=== PATIENT | female | born 1970 | race Hispanic/Latino ===

== ENCOUNTER 2019-05-18 | Emergency (ER) | payer SELFPAY ==
[2019-05-18 22:23] LABS: HEMATOCRIT 35.4 % (37.0-47.0); HEMOGLOBIN 11.4 g/dl (12.0-16.0); IMMATURE GRANULOCYTES 0.1 % (0.0-5.0); MEAN CELL VOLUME 83.9 fL CALC (80.0-100.0); MEAN CORPUSCULAR HGB CONC 32.2 g/L CALC (32.0-36.0); NEUT# 4.09 thou/uL (2.00-7.15); RED BLOOD COUNT 4.22 mill/uL (4.20-5.60)
[2019-05-18 22:51] LABS: ALBUMIN 4.4 g/dL (3.2-5.0); ALKALINE PHOSPHATASE 92 u/l (38-126); ANION GAP 14 (6-22 (CALC)); BILIRUBIN, TOTAL 0.3 mg/dL (0.0-1.4); BUN 16 mg/dL (7-17); BUN/CREATININE RATIO 16 (12-20 (CALC)); CARBON DIOXIDE 23 mmol/l (22-30); CHLORIDE 105 mmol/l (95-108); GFR 59 ML/MIN (>=60 (CALC)); GFR FOR AFR.AMER. > 60 ML/MIN (>=60 (CALC)); POTASSIUM 4.3 mmol/l (3.5-5.1); SGOT/AST 31 u/l (14-36); SODIUM 138 mmol/l (137-146); TOTAL PROTEIN 8.2 g/dL (6.3-8.2)
[2019-05-18 23:04] LABS: MYOGLOBIN 23 ng/mL (0 - 62)
[2019-05-18 23:36] LABS: URINE BILIRUBIN - DIPSTICK NEGATIVE (NEGATIVE); URINE BLOOD DIPSTICK NEGATIVE (NEGATIVE); URINE COLOR YELLOW; URINE GLUCOSE - DIPSTICK NEGATIVE (NEGATIVE); URINE KETONE NEGATIVE (NEGATIVE); URINE LEUK ESTERASE NEGATIVE (NEGATIVE); URINE NITRITE - DIPSTICK NEGATIVE (Negative); URINE PROTEIN - DIPSTICK NEGATIVE (NEG-TRACE); URINE SPECIFIC GRAVITY <=1.005; URINE UROBILINOGEN - DIPSTICK 0.2 E.U./dL (0.2)
== END 2019-05-19 00:05 | disposition home or self-care (01) | DRG 310 ==
PROVIDERS: Emergency Medicine
DX: R00.2 Palpitations (principal); I10 Essential (primary) hypertension

== ENCOUNTER 2021-10-01 20:11 | Emergency (ER) | payer SELFPAY ==
[~2021-10-01] VITALS: Ht 157.5 cm; Wt 93.8 kg
[2021-10-01 20:46] VITALS: BP 148/69
[2021-10-01 21:01] VITALS: BP 142/71
[2021-10-01 21:31] VITALS: BP 139/66
[2021-10-01] MEDS ORDERED: NAPROXEN500 MG PO (22:22)
[2021-10-01] MEDS ORDERED: CYCLOBENZAPRINE10 MG PO (22:22)
[2021-10-01 22:24] VITALS: BP 139/66
== END 2021-10-01 22:29 | disposition home or self-care (01) | DRG 552 ==
LOC: ED 20:11
DX: S33.5XXA Sprain of ligaments of lumbar spine, initial encounter (principal); I10 Essential (primary) hypertension; E11.9 Type 2 diabetes mellitus without complications; I48.91 Unspecified atrial fibrillation; X50.1XXA Overexertion from prolonged static or awkward postures, initial encounter

== ENCOUNTER 2023-12-26 00:53 | Emergency (ER) | payer SELFPAY ==
[~2023-12-26] VITALS: Ht 157.5 cm; Wt 87.5 kg
[~2023-12-26 00:53] MED LIST: CYCLOBENZAPRINE10 MG PO; NAPROXEN500 MG PO
[2023-12-26 01:30] VITALS: BP 173/96
[2023-12-26] MEDS ORDERED: Acetaminophen 300 MG/Codeine 30 MG/COMBO PO ONE (01:40)
[2023-12-26] MEDS ORDERED: KETOROLAC TROMETHAMINE 30 MG/ML SDV IM ONE (01:40)
[2023-12-26] MEDS ORDERED: DEXAMETHASONE SOD. PHOSPHATE 10 MG/ML VIAL IM ONE (01:40)
[2023-12-26] MEDS ORDERED: METFORMIN HCL500 M1 PO (01:43)
[2023-12-26] MEDS ORDERED: LOSARTAN POTASS50 MG PO (01:44)
[2023-12-26] MEDS ORDERED: NAPROXEN375 MG PO (02:41)
[2023-12-26] MEDS ORDERED: FLEXERIL5 M1 PO (02:41)
[2023-12-26 02:47] VITALS: BP 150/84
== END 2023-12-26 02:59 | disposition home or self-care (01) | DRG 552 ==
LOC: ED 00:53
DX: S16.1XXA Strain of muscle, fascia and tendon at neck level, initial encounter (principal); I10 Essential (primary) hypertension; E11.9 Type 2 diabetes mellitus without complications; I48.91 Unspecified atrial fibrillation; X58.XXXA Exposure to other specified factors, initial encounter; Z79.84 Long term (current) use of oral hypoglycemic drugs